=== PATIENT | male | born 1945 | race Caucasian/White ===

== ENCOUNTER → 2020-01-15 | Outpatient (CLI) | payer MEDICARE ==
--- NOTE | 2020-01-15 16:38 | EXE ---
[place] [address] STRESS ECHOCARDIOGRAM Name: KEKE HANKS Room: [facility]#: [id number] Admission: 01/15/20 Attend Phys: Aram Navarrete Discharge: Date of : 43 Date of Service: 01/15/20 1638 Report #: [id number] THIS REPORT FOR: cc: Arnaud Rasmussen MD, Steve C. MD Liston, Michael J. MD [facility] ~ APPROVED REPORT Study performed: 01/15/2020 15:17:00 Exam: Stress Echocardiogram Indication: Chest pain Patient Location: Out-Patient Stress Nurse: Amy Almaguer RN Supervising Physician: Gagandeep Heredia MD Ht: 5 ft 9 in HR: 60 bpm BP: 135/85 mmHg Medical History Cardiac Risk Factors: Tobacco History (Former), Hyperlipidemia Procedure The patient underwent an Exercise Stress Test using the Bill Protocol. Blood pressure, heart rate, and EKG were monitored. An Echocardiogram was performed by proof technician in four stages in quad fashion. At peak stress, four selected images were obtained and placed side by side with resting images for comparison. Stress Test Details Stress Test: Exercise stress testing was performed using a Bill protocol. HR Resting HR: 60 bpm Max Heart Rate (APMHR): 145 bpm Max HR Achieved: 158 bpm Target HR (85% APMHR): 123 bpm % of APMHR: 108 Recovery HR: 107 bpm HR response to stress: Normal HR response to stress BP Resting BP: 135/85 mmHg Max BP: 210/114 mmHg Recovery BP: 120/83 [place] [address] STRESS ECHOCARDIOGRAM Name: KEKE HANKS Room: [facility]#: [id number] Admission: 01/15/20 Attend Phys: Aram Navarrete Discharge: Date of : 43 Date of Service: 01/15/20 1638 Report #: [id number] BP response to stress: Abnormal hypertensive response to stress. ECG Resting ECG: Sinus Rhythm Stress ECG: Sinus Tachycardia ST Change: Downsloping ST depression Maximum ST Deviation: 3 mm Arrhythmia: VPC's Recovery ECG: Sinus Rhythm Recovery ST Change: Downsloping ST depression Recovery ST Deviation: 3 mm Recovery Arrhythmia: VPC's Clinical Reason for Termination: Completed protocol Stress Symptoms: Chest pain, ST changes Exercise duration: 6 min 38 sec Highest Stage Achieved: Stage 2: 2.5 mph at 12% grade. Exercise capacity: 8.02 METs The patient developed midsternal chest pressure at peak exercise that persisted several minutes into recovery consistent with stress-induced angina. Patient was given a sublingual nitroglycerin as his pain was resolving. At completion the pain was completely resolved. Stress ECG Conclusion Baseline twelve-lead EKG shows sinus rhythm without significant ST segment or T wave abnormality. EKGs obtained during and post exercise stress show sinus tachycardia and sinus rhythm with [address] segment depression that persists 12 minutes into recovery. There were occasional unifocal premature ventricular contractions noted. Pre-Stress Echo The resting Echocardiogram showed normal left ventricular contractility with an estimated Ejection Fraction of about 60-65%. Post-Stress Echo The stress Echocardiogram showed abnormal left ventricular contractility with an estimated Ejection Fraction of about 60-65%. Stress echocardiography reveals stress-induced hypokinesis of the mid to apical septum and anteroseptal wall. Global LV systolic function was not significantly affected. Conclusion Clinical Response: [place] [address] STRESS ECHOCARDIOGRAM Name: KEKE HANKS Eugenia Room: [facility]#: [id number] Admission: 01/15/20 Attend Phys: Aram Navarrete Discharge: Date of : 43 Date of Service: 01/15/20 1638 Report #: [id number] Exercise Capacity: Average Stress ECG Response: Ischemic Stress Echo Images: Ischemic The patient had typical angina with exercise. There was EKG and stress echocardiographic evidence of ischemia involving the mid to apical anterior and anteroseptal wall consistent with possible LAD lesion. This is a high risk study. No prior study available for comparison. Other Information Study Quality: Good <Conclusion> The patient had typical angina with exercise. There was EKG and stress echocardiographic evidence of ischemia involving the mid to apical anterior and anteroseptal wall consistent with possible LAD lesion. This is a high risk study. <ELECTRONICALLY SIGNED> By: Gagandeep Heredia MD, FACC 01/15/20 1638 1638 1638 Gagandeep Heredia MD, FACC /INF
== END ==
LOC: M.CRD 15:00
PROVIDERS: ATTEND Family Medicine
DX: I25.9 Chronic ischemic heart disease, unspecified (principal); R07.9 Chest pain, unspecified; I20.9 Angina pectoris, unspecified